=== PATIENT | male | born 1960 | race Caucasian/White ===

== ENCOUNTER 2022-10-05 20:42 | Emergency (ER) | payer BC ==
[2022-10-05] MEDS ORDERED: Albuterol/Ipratropium 3.0-0.5 MG/3 ML Neb Soln NEB ONE (20:56)
[2022-10-05] MEDS ORDERED: methylPREDNISolone Sodium Succinate 40 MG/1 ML SDV IM ONE (21:04)
[2022-10-05] MEDS ORDERED: Sodium Chloride 0.9% 10 ML Syringe FLUSH PRN (21:05)
[2022-10-05] MEDS ORDERED: Sodium Chloride 0.9% 1,000 ML IV SCH (21:15)
[2022-10-05] MEDS ORDERED: methylPREDNISolone Sodium Succinate 40 MG/1 ML SDV IVPUSH ONE (21:23)
[2022-10-05 21:42] LABS: ANION GAP 9.6 meq/L (7-15); CHLORIDE,CL 107 mmol/L (98-107); ESTIMATED GFR 95 mL/min (>=60); SODIUM,NA 143 mmol/L (136-145)
[2022-10-05 21:55] LABS: CORONAVIRUS COVID-19 NAA NEGATIVE (NEGATIVE); RESPIRATORY SYNCYTIAL VIR NAA NEGATIVE (NEGATIVE)
[2022-10-05 22:26] VITALS: PULSE 72
[2022-10-05] MEDS ORDERED: Take Home: Albuterol/Ipratropium 3.0-0.5 MG/3 ML Neb Soln, 5 Neb Pack NEB ONE (22:30)
[2022-10-05 22:44] VITALS: BP 131/84
== END 2022-10-05 23:00 | disposition home or self-care (01) ==
LOC: LL.ED 20:42
DX: J45.41 Moderate persistent asthma with (acute) exacerbation (principal); K21.9 Gastro-esophageal reflux disease without esophagitis; Z79.82 Long term (current) use of aspirin; Z79.899 Other long term (current) drug therapy; Z20.822 Contact with and (suspected) exposure to COVID-19
CPT/HCPCS: 0241U; 36415; 71046; 80053; 83880; 85025; 85379; 94640; 96361; 96374; 99284; 99285-25; A9270-GY; J2920; J7030; J7620-GY

== ENCOUNTER 2023-04-23 00:21 | Emergency (ER) | payer BC ==
[2023-04-23 00:40] VITALS: PULSE 75
[2023-04-23 00:42] VITALS: BP 137/84
[2023-04-23 00:50] LABS: BASOPHILS ABSOLUTE AUTO 0.02 K/uL (0.00-0.20); BASOPHILS PERCENT AUTO 0.3 % (0.0-2.0); EOSINOPHILS ABSOLUTE AUTO 0.22 K/uL (0.00-0.50); EOSINOPHILS PERCENT AUTO 3.5 % (0.0-5.0); HEMATOCRIT 44.2 % (39.0-49.0); LYMPHOCYTES ABSOLUTE AUTO 1.41 K/uL (0.50-3.50); LYMPHOCYTES PERCENT AUTO 22.5 % (10.0-50.0); MEAN CORPUSCULAR HEMOGLOBIN 30.3 pg (28.2-33.3); MEAN CORPUSCULAR HGB CONC 33.9 g/dL (31.7-36.0); MEAN CORPUSCULAR VOLUME 89.3 fL (84.0-98.0); MONOCYTES PERCENT AUTO 12.8 % (2.0-14.0); NEUTROPHILS ABSOLUTE AUTO 3.82 K/uL (1.40-7.00); NEUTROPHILS PERCENT AUTO 60.9 % (45.0-80.0); PLATELET COUNT,PLT 236 K/uL (150-350); RED BLOOD CELL COUNT 4.95 M/uL (4.33-5.41); RED CELL DISTRIBUTION WIDTH 13.1 % (11.2-14.1); WHITE BLOOD CELL COUNT,WBC 6.3 K/uL (4.0-10.2)
[2023-04-23 01:13] LABS: ALANINE AMINOTRANSFERASE,ALT 23 U/L (12-78); ALBUMIN 3.7 g/dL (3.4-5.0); ALKALINE PHOSPHATASE 66 IU/L (46-116); ANION GAP 8.2 meq/L (7-15); ASPARTATE AMNIOTRANSFERASE,AST 17 U/L (15-37); BILIRUBIN TOTAL 0.5 mg/dL (0.2-1.0); BLOOD UREA NITROGEN,BUN 17 mg/dL (7-18); CALCIUM 8.1 mg/dL (8.5-10.1); CARBON DIOXIDE,CO2 26.8 mmol/L (21.0-32.0); CHLORIDE,CL 107 mmol/L (98-107); GLUCOSE RANDOM 116 mg/dL (70-99); POTASSIUM,K 3.5 mmol/L (3.5-5.1); PRO B-TYPE NATRIUR PEPT,BNPPRO 214 pg/mL (0-125); PROTEIN TOTAL,TP 6.5 g/dL (6.4-8.2); SODIUM,NA 142 mmol/L (136-145)
[2023-04-23 01:14] LABS: ESTIMATED GFR 69 mL/min (>=60)
[2023-04-23] MEDS: methylPREDNISolone Sodium Succinate 40 MG/1 ML SDV IM ONE (01:20)
== END 2023-04-23 01:30 | disposition home or self-care (01) ==
LOC: LL.ED 00:21
DX: J68.9 Unspecified respiratory condition due to chemicals, gases, fumes and vapors (principal); K21.9 Gastro-esophageal reflux disease without esophagitis; Z86.73 Personal history of transient ischemic attack (TIA), and cerebral infarction without residual deficits; Z79.82 Long term (current) use of aspirin; Z79.899 Other long term (current) drug therapy
CPT/HCPCS: 36415; 71046; 80053; 83880; 85025; 85610; 93005; 96372; 99285; J2920

== ENCOUNTER 2024-05-27 07:27 | Day surgery (SDC) | payer BC ==
[~2024-05-27 07:27] MED LIST: Sodium Chloride 0.9% 10 ML Syringe FLUSH PRN
[2024-05-27] MEDS: Lactated Ringers 1,000 ML IV SCH (07:46)
[2024-05-27] MEDS ORDERED: Propofol 200 MG/20 ML SDV ONE (07:58)
[2024-05-27 09:24] VITALS: BP 120/83; PULSE 51
== END 2024-05-27 10:00 | disposition home or self-care (01) ==
LOC: LL.SDS 07:27
PROVIDERS: ATTEND Surgery
DX: K21.9 Gastro-esophageal reflux disease without esophagitis (principal); K44.9 Diaphragmatic hernia without obstruction or gangrene; J45.909 Unspecified asthma, uncomplicated
CPT/HCPCS: J2704; J7120